=== PATIENT | female | born 1985 | race Caucasian/White ===

== ENCOUNTER 2020-04-03 11:51 | Emergency (ER) | payer MEDICAID, SELFPAY ==
--- NOTE | ~2020-04-03 | XR_ITS ---
EXAMINATION: XR SHOULDER, RIGHT CLINICAL INFORMATION: Right shoulder pain COMPARISON: None TECHNIQUE: Three views of the right shoulder. FINDINGS: The bones and soft tissues are normal. No fracture. Glenohumeral and acromioclavicular alignment is anatomic with normal joint space. No abnormal soft tissue calcifications. XR/XR shoulder RT min 2V IMPRESSION: Normal right shoulder.
[2020-04-03 11:56] VITALS: BP 130/75; PULSE 115; RESP 16; TEMP 36.8; O2SAT 99; BMI 30.2
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
== END 2020-04-03 13:09 | disposition home or self-care (01) ==
PROVIDERS: Emergency Provider Emergency Medicine
DX: S40.011A Contusion of right shoulder, initial encounter (principal); V48.0XXA Car driver injured in noncollision transport accident in nontraffic accident, initial encounter; Y93.89 Activity, other specified; Y92.414 Local residential or business street as the place of occurrence of the external cause; Y99.9 Unspecified external cause status
CPT/HCPCS: 73030; 99283

== ENCOUNTER 2020-07-03 17:45 | Emergency (ER) | payer MEDICAID, SELFPAY ==
--- NOTE | ~2020-07-03 | XR_ITS ---
EXAMINATION: XR ANKLE, RIGHT CLINICAL INFORMATION: Fall with ankle pain COMPARISON: 10/22/2019 and 03/26/2016 TECHNIQUE: Four views of the right ankle. FINDINGS: The bones and soft tissues are normal. No fracture. Alignment is anatomic. Joint spaces are maintained. No joint effusion. XR/XR ankle RT min 3V IMPRESSION: Normal right ankle.
--- NOTE | ~2020-07-03 | XR_ITS ---
EXAMINATION: XR LUMBOSACRAL SPINE CLINICAL INFORMATION: Fall and pain COMPARISON: 04/16/2014 TECHNIQUE: Three views of the lumbosacral spine. FINDINGS: Vertebral body heights and disc heights are preserved. There is a suggestion again of chronic bilateral pars defects at L5 similar to the 2015 study. The vertebral alignment is normal. The paraspinal soft tissues are normal. IUD incidentally noted. XR/XR lumbar spine 2-3V IMPRESSION: No acute bony abnormality. 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 Appearance is similar to the 2015 study.
--- NOTE | ~2020-07-03 | CT_ITS ---
EXAMINATION: CT HEAD WITHOUT CONTRAST CLINICAL INFORMATION: Headache. Visual disturbance. COMPARISON: CT scan of the head 06/28/2017. TECHNIQUE: Contiguous axial imaging was performed from the skull base to vertex without intravenous administration of contrast. This CT examination was performed using dose optimization techniques as appropriate, variously including the following: *Automated exposure control *Adjustment of mA and/or kV according to patient size (this includes techniques or standardized protocols for targeted exams where dose is matched to indication/reason for exam; i.e. extremities or head) *Use of iterative reconstruction technique DLP: 603 mGy-cm FINDINGS: There is no acute intracranial hemorrhage or abnormal extra-axial collection. No intracranial mass effect or midline shift. Lateral and third ventricles are normal. No hydrocephalus. Mujica-white matter differentiation is preserved and there is no evidence of acute territorial infarct. The calvarium and skull base are intact. Mastoid air cells and middle ear cavities are well aerated. No active paranasal sinus disease. A perforation of the nasal septum that is partially included within the [id number] of this examination. Globes and orbits are symmetric. CT/CT head/brain wo con IMPRESSION: Normal CT scan of the head. No evidence of acute territorial infarct or hemorrhage.
[2020-07-03 17:52] VITALS: BP 130/78; PULSE 114; RESP 18; TEMP 36.6; O2SAT 97; BMI 31.3
--- NOTE | 2020-07-03 19:30 | ED.FALL ---
HPI - Fall General Chief Complaint: Fall Stated Complaint: fALL Time Seen by Provider: 07/03/20 19:22 Source: patient Mode of arrival: ambulatory Limitations: no limitations History of Present Illness HPI Narrative: 35 yo female here with HERNANDEZ, intermittent blurry vision, low back pain and right ankle pain s/p mechanical fall. slip and fall, falling backwards hitting the back of her head. No loss of conscious. No anticoagulation use. No nausea, vomiting, dizziness. No neck pain. No radiation of pain. No numbness or tingling. Related Data Previous Rx's Medication Instructions Recorded ibuprofen 800 mg PO Q8H PRN #14 tab 04/03/20 Allergies Allergy/AdvReac Type Severity Reaction Status Date / Time human papillomavirus Allergy Unknown UNKNOWN Unverified 11/12/19 15:29 vaccine, quadr [From GARDASIL] Review of Systems Review of Systems: Yes all other systems are reviewed and are negative Constitutional: Constitutional: Reports no additional constitutional complaints, Denies body ache(s), Denies chills, Denies fever(s), Reports headache(s) and Denies weakness Eyes: Eyes: Reports no additional eye complaints, Reports blurry vision and Denies change in vision ENT: Reports system reviewed and no additional complaints, except as documented, Denies dizziness, Reports headache(s), Denies nasal congestion, Denies nasal discharge and Denies neck pain Cardiovascular: Cardiovascular: Reports no additional cardiovascular complaints, Denies chest pain, Denies leg edema and Denies dyspnea Respiratory: Respiratory: Reports no additional respiratory complaints, Denies cough and Denies dyspnea Gastrointestinal: Gastrointestinal: Reports no additional gastrointestinal complaints, Denies abdominal pain, Denies diarrhea, Denies nausea and Denies vomiting Genitourinary: Genitourinary: Reports no additional female genitourinary complaints and Denies urinary incontinence Musculoskeletal: Musculoskeletal: Reports no additional musculoskeletal complaints, Reports back pain, Reports arthralgias, Denies joint swelling, Denies neck pain, Denies numbness and Denies tingling Integumentary/Breasts: Skin/Breast: Reports system reviewed and no additional complaints, except as docu and Denies rash Neurologic: Reports system reviewed and no additional complaints, except as documented, Denies Abnormal speech present, Denies dizziness, Reports headache(s), Denies numbness, Denies tingling and Denies weakness PMFSH Past Medical History Attestation statement: The following information was validated with the patient. Source: old records reviewed and nursing notes reviewed Medical History Asthma Social History Social History Alcohol intake: never Smoking Status: Unknown if ever smoked Use of substances other than those prescribed or required for medical reasons: No Advance Directives: No Advance Directives Information Provided: Yes Physical Exam Vital Signs: Vital Signs: Last Vital Signs Temp 97.8 F 07/03/20 17:52 Pulse 114 H 07/03/20 17:52 Resp 18 07/03/20 17:52 BP 130/78 07/03/20 17:52 Pulse Ox 97 07/03/20 17:52 Body Mass Index 31.3 Const: General: cooperative, healthy appearing, comfortable and no acute distress Orientation/consciousness: patient oriented x3 Limitations: no limitations HENMT: Head: Yes normal to inspection Ears: hearing grossly normal bilaterally General nose exam: Normal external nose present Face and sinus: Yes normal facial exam Mouth: Normal oral and palatal mucosa present Throat: Yes posterior oropharynx normal Eyes: General: appearance normal, both eyes and all related structures Pupils: Equal, round and reactive pupils present Neck: Other: No neck pain. No midline tenderness, step-offs or deformities Neck: Yes normal visual inspection and Yes full ROM Chest: Chest palpation & inspection: normal inspection of the chest Resp: Effort & Inspection: normal respiratory effort Auscultation: clear to auscultation bilaterally Cardio: Rate: regular rate Rhythm: regular rhythm Peripheral pulses: Peripheral pulses 2+ throughout GI: Inspection: Yes normal to inspection Palpation (GI): Soft to palpation and nontender Auscultation: normal bowel sounds Back/Spine/Pelvis: Other: Lower lumbar midline tenderness with no step-offs or deformities Thoracic/Lumbar Spine: thoracic and lumbar spine normal to inspection Skin: General skin exam: no rashes or lesions noted Neuro: General: patient oriented x3, no focal motor deficits and normal sensation to monofilament Cranial nerves: Yes CN's II-XII intact bilaterally, Yes Equal, round and reactive pupils present, Yes Bilaterally intact EOM present, Yes Nystagmus not present, Yes Normal facial strength present and Yes Midline tongue present Cognition (Neuro): normal cognition Speech: No Abnormal speech present Gait exam (Neuro): Normal gait present Motor exam (neuro): 5/5 motor strength present throughout Extrem: General: Yes normal to inspection Course Course Course Narrative: 35-year-old female here status post mechanical fall with head strike. No loss of consciousness. Now has headache with some intermittent blurry vision, low back pain and right ankle pain. Check CT head, x-rays of back and ankle. 2044-CT head negative. X-rays unremarkable. Patient likely has a mild concussion. She is able to tolerate p.o. fluids and has no overt neurological deficits. Recommended concussive care. Follow up with primary care doctor in several days for re-evaluation.. X-rays negative. Likely sprain. Reviewed worrisome signs and symptoms when to return to the emergency department. Comfortable discharge home. MDM - Fall Medical Records Attestation: I reviewed the patient's medical records. Lab Data Attestation: I reviewed the patient's lab results. Imaging Data CT scan - head: Attestation: I personally reviewed and interpreted this imaging study as follows: Radiologist's impression: IMPRESSION: Normal CT scan of the head. No evidence of acute territorial infarct or hemorrhage. ankle xray right: Attestation: I personally reviewed and interpreted this imaging study as follows: Radiologist's impression: EXAMINATION: XR ANKLE, RIGHT CLINICAL INFORMATION: Fall with ankle pain COMPARISON: 10/22/2019 and 03/26/2016 TECHNIQUE: Four views of the right ankle. FINDINGS: The bones and soft tissues are normal. No fracture. Alignment is anatomic. Joint spaces are maintained. No joint effusion. XR/XR ankle RT min 3V IMPRESSION: Normal right ankle. lumbar xray: Attestation: I personally reviewed and interpreted this imaging study as follows: Radiologist's impression: EXAMINATION: XR LUMBOSACRAL SPINE CLINICAL INFORMATION: Fall and pain COMPARISON: 04/16/2014 TECHNIQUE: Three views of the lumbosacral spine. FINDINGS: Vertebral body heights and disc heights are preserved. There is a suggestion again of chronic bilateral pars defects at L5 similar to the 2014 study. The vertebral alignment is normal. The paraspinal soft tissues are normal. IUD incidentally noted. XR/XR lumbar spine 2-3V IMPRESSION: No acute bony abnormality. 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 Appearance is similar to the 2015 study. Discharge Plan Discharge Clinical Impression: Concussion without loss of consciousness, Ankle sprain, Lumbar strain Patient Disposition: Home, Self-Care Instructions: Ankle Sprain (ED), Concussion (ED), Low Back Strain (ED) Additional Instructions: Heat or ice Gentle stretching limit screen time Prescriptions: No Action ibuprofen 800 mg tablet 800 mg PO Q8H PRN (Reason: pain) Qty: 14 RF: 0 Referrals: Physician,Unknown [Primary Care Provider] - 2 days Stand Alone Forms: Work/School Release Interventions: ED Discharge Assessment Last Done: 07/03/20 20:42 Discharge Date/Time: 07/03/20 20:43
--- NOTE | 2020-07-03 19:37 | PC.NURSE ---
Plan for CT & Xrays. No IV access needed at this time. Will continue to monitor.
== END 2020-07-03 20:43 | disposition home or self-care (01) ==
PROVIDERS: Emergency Provider Emergency Medicine
DX: S06.0X0A Concussion without loss of consciousness, initial encounter (principal); S93.401A Sprain of unspecified ligament of right ankle, initial encounter; S39.012A Strain of muscle, fascia and tendon of lower back, initial encounter; G44.309 Post-traumatic headache, unspecified, not intractable; M25.571 Pain in right ankle and joints of right foot; W01.0XXA Fall on same level from slipping, tripping and stumbling without subsequent striking against object, initial encounter; Y93.9 Activity, unspecified; Y92.9 Unspecified place or not applicable; Y99.9 Unspecified external cause status
CPT/HCPCS: 70450; 72100; 73610; 99284

== ENCOUNTER 2020-11-15 16:09 | Emergency (ER) | payer MEDICAID, SELFPAY ==
[2020-11-15 17:24] VITALS: BP 136/65; PULSE 85; RESP 18; TEMP 37.2; O2SAT 99; BMI 31.3
[2020-11-15] MEDS: Lidocaine HCl 2 % MPF 5 ML VIAL INFILTRATI ×2 (19:17)
--- NOTE | 2020-11-15 20:04 | ED_ITS ---
HPI - Skin/Abscess/Foreign Bdy General Chief complaint: Skin/Abscess/Foreign Body Stated complaint: bump on back Time Seen by Provider: 11/15/20 18:37 Source: patient Mode of arrival: ambulatory Limitations: no limitations History of Present Illness HPI narrative: Patient presents to painful lump on back. Boyfriend states the lump is red and looks swollen. Patient denies any recent trauma to the back. Patient denies any recent trauma to the back. 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 Related Data Previous Rx's Medication Instructions Recorded ibuprofen 800 mg tablet 800 mg PO Q8H PRN #14 tab 04/03/20 cephalexin 500 mg capsule 500 mg PO QID #28 cap 11/15/20 doxycycline hyclate 100 mg tablet 100 mg PO BID 7 Days #14 tab 11/15/20 oxycodone-acetaminophen 5 mg-325 1 tab PO TID PRN #9 tab 11/15/20 mg tablet (Percocet) Allergies Allergy/AdvReac Type Severity Reaction Status Date / Time human papillomavirus Allergy Unknown UNKNOWN Unverified 11/12/19 15:29 vaccine, quadr [From GARDASIL] Review of Systems Review of Systems: Yes all other systems are reviewed and are negative Constitutional: Constitutional: Reports as per HPI and Reports no additional constitutional complaints Eyes: Eyes: Reports as per HPI ENT: Reports system reviewed and no additional complaints, except as documented and Reports as per HPI Cardiovascular: Cardiovascular: Reports as per HPI and Reports no additional cardiovascular complaints Respiratory: Respiratory: Reports as per HPI and Reports no additional respiratory complaints Gastrointestinal: Gastrointestinal: Reports as per HPI and Reports no additional gastrointestinal complaints Genitourinary: Genitourinary: Reports no additional female genitourinary complaints and Reports as per HPI Musculoskeletal: Musculoskeletal: Reports no additional musculoskeletal complaints, Reports as per HPI and Reports back pain Comments: Lump on back Neurologic: Reports system reviewed and no additional complaints, except as documented and Reports as per HPI Psychiatric: Psychiatric: Reports no additional psychiatric complaints and Reports as per HPI PMF Past Medical History Medical History (Updated 11/16/20 @ 00:02 by Tres Cooper) Anxiety Asthma Kidney stones PTSD (post-traumatic stress disorder) Social History Social History Alcohol intake: never Advance Directives: No Advance Directives Information Provided: Yes Patient : No Physical Exam Vital Signs: Vital Signs: Last Vital Signs Temp 99 F 11/15/20 17:24 Pulse 85 11/15/20 17:24 Resp 18 11/15/20 17:24 BP 136/65 11/15/20 17:24 Pulse Ox 99 11/15/20 17:24 Body Mass Index 31.3 Const: General: cooperative, healthy appearing, comfortable, no acute distress, well developed, alert and awake Orientation/consciousness: patient oriented x3 HENMT: Head: Yes normal to inspection, Yes No palpable skull fracture present, Yes normocephalic, Yes atraumatic and No abrasion Eyes: General: appearance normal, both eyes and all related structures Neck: Neck: Yes normal visual inspection, Yes full ROM, Yes no lymphadenopathy, Yes no meningeal signs, Yes trachea midline, Yes supple and No tender Chest: Chest palpation & inspection: normal inspection of the chest and normal palpation of entire chest wall Resp: Effort & Inspection: normal respiratory effort and able to speak in complete sentences Auscultation: clear to auscultation bilaterally Cardio: Jugular venous distension: no JVD Heart sounds: S1 normal heart sound present and S2 normal heart sound present GI: Inspection: Yes normal to inspection and No abdominal wall ecchymosis Palpation (GI): Soft to palpation, not firm, nontender, no guarding and not rigid : General: No CVA tenderness and Yes no CVA tenderness Back/Spine/Pelvis: Back: no CVA tenderness, No CVA tenderness and back tenderness Back/spine/pelvis image: 1. Positive for area mass with erythema that is fluctuant and tender to palpation. Bedside ultrasound shows small collection of pus fluid collection. Skin: Other: Abscess General skin exam: no rashes or lesions noted and elasticity normal Neuro: General: patient oriented x3, gait normal, no meningeal signs and CN's II-XI intact bilaterally Cranial nerves: Yes CN's II-XII intact bilaterally Extrem: General: Yes normal to inspection and Yes full ROM Psych: Appearance: grossly normal, well kempt and not disheveled Course Course Course Narrative: Patient states up-to-date with tetanus Reevaluation(s) Reevaluation #1: Lidocaine 5 mL used for anesthesia. Wound clean with Betadine and normal saline. Size 11 blade used for incision. Forceps placed through open up pocket of wound. Small yellow pus discharge was drained. No packing indicating. Incision very superficial. Wound culture sent. Patient given doxy will be discharged with antibiotics. Time: 20:11 MDM - Skin/Abscess/Foreign Bdy MDM Narrative Medical decision making narrative: Abscess Discharge Plan Discharge Clinical Impression: Cellulitis, Abscess of skin or subcutaneous tissue Patient Disposition: Home, Self-Care Instructions: Cellulitis (ED), Abscess Incision and Drainage (DC) Additional Instructions: You will be discharged with antibiotics for the abscess. Return to the ED in 2 days for wound re-evaluation. No packing needed. Return to ED for worsening pain, fever, chills, nausea, vomiting, increased pus discharge, or any other concerning symptoms. Prescriptions: New cephalexin 500 mg capsule 500 mg PO QID Qty: 28 RF: 0 doxycycline hyclate 100 mg tablet 100 mg PO BID 7 Days Qty: 14 RF: 0 oxycodone-acetaminophen [Percocet] 5-325 mg tablet 1 tab PO TID PRN (Reason: pain) Qty: 9 RF: 0 No Action ibuprofen 800 mg tablet 800 mg PO Q8H PRN (Reason: pain) Qty: 14 RF: 0 Stand Alone Forms: Work/School Release Interventions: ED Discharge Assessment Last Done: 11/15/20 20:30 Discharge Date/Time: 11/15/20 20:33 Print Language: [place]
[2020-11-15] MEDS: oxyCODONE HCl Immed Release 5 MG TABLET PO (20:11)
== END 2020-11-15 20:33 | disposition home or self-care (01) ==
PROVIDERS: Emergency Provider Emergency Medicine Emergency Medical Services
DX: L03.312 Cellulitis of back [any part except buttock and flank] (principal); Z79.899 Other long term (current) drug therapy
CPT/HCPCS: 10060; 87071; 87077; 87186; 87205; 99284

== ENCOUNTER 2020-11-18 18:00 | Emergency (ER) | payer MEDICAID, SELFPAY | END 2020-11-18 20:18 | disposition left against medical advice (07) | PROVIDERS: Emergency Provider Emergency Medicine; PCP Nurse Practitioner Family | DX: R79.89 Other specified abnormal findings of blood chemistry (principal) ==

== ENCOUNTER 2023-06-29 19:29 | Emergency (ER) | payer OTHER, MEDICAID, SELFPAY ==
--- NOTE | ~2023-06-29 | XR_ITS ---
EXAMINATION: XR ANKLE, LEFT CLINICAL INFORMATION: Pain/swelling status post fall COMPARISON: None available. TECHNIQUE: AP, lateral, and mortise views of the left ankle. FINDINGS: No acute fracture or dislocation of the ankle. Ankle mortise is intact. Small posttraumatic deformity of the medial malleolus. Significant soft tissue swelling surrounding the lateral malleolus and ankle. No radiopaque foreign bodies. XR/XR ankle LT 2V IMPRESSION: Significant lateral malleolus soft tissue swelling. No acute fracture or dislocation.
[2023-06-29 20:13] VITALS: BP 118/68; PULSE 93; RESP 18; TEMP 36.9; O2SAT 96; BMI 31.4
--- NOTE | 2023-06-29 22:07 | ED.GENADULT ---
HPI - General Adult General Chief complaint: Extremity Injury, Lower Stated complaint: LT ankle injury (at work) Time Seen by Provider: 06/29/23 22:07 Source: patient Mode of arrival: ambulatory Limitations: no limitations History of Present Illness HPI narrative: Patient is a 38 year old assigned female at with no reported medical history presenting to the emergency department today with left ankle pain. Patient states that she was at work when she fell backwards and her left foot bent inward awkwardly, causing pain Patient denies any head strike, loss of consciousness, dizziness, lightheadedness, abdominal pain, nausea, vomiting, fever, chills, blurry vision, double vision, loss of vision, chest pain, difficulty breathing, shortness of breath, back pain, night sweats, pain with urination, increased urinary frequency, increased urinary urgency, blood in her urine or stool, syncope or a near syncopal episode, bowel incontinence, bladder incontinence, bowel retention, bladder retention, or any other complaints at this time. Location: left and lower extremity Radiation: non-radiation Severity: mild Severity scale (1-10): 3 Quality: aching and dull Pain Consistency: constant Relieving factors: immobilization Exacerbating factors: movement Associated symptoms: denies other symptoms Treatments prior to arrival: none Related Data Previous Rx's ?Medication ?Instructions ?Recorded ibuprofen 800 mg tablet 800 mg PO Q8H PRN pain #14 tabs 04/03/20 cephalexin 500 mg capsule 500 mg PO QID #28 caps 11/15/20 doxycycline hyclate 100 mg tablet 100 mg PO BID 7 days #14 tabs 11/15/20 oxycodone-acetaminophen 5 mg-325 1 tab PO TID PRN pain #9 tabs 11/15/20 mg tablet (Percocet) Allergies Allergy/AdvReac Type Severity Reaction Status Date / Time human papillomavirus Allergy Unknown UNKNOWN Unverified 06/29/23 20:14 vaccine, quadr [From GARDASIL] cat dander [cats] Allergy Hives Verified 06/29/23 20:14 cinnamon Allergy Hives Verified 06/29/23 20:14 Review of Systems Constitutional: Constitutional: Reports no additional constitutional complaints, Denies chills, Denies fever(s) and Denies night sweats Eyes: Eyes: Reports no additional eye complaints, Denies blurry vision, Denies change in vision, Denies diplopia, Denies eye discharge, Denies loss of vision and Denies eye pain ENT: Denies dizziness Cardiovascular: Cardiovascular: Reports no additional cardiovascular complaints, Denies chest pain, Denies lightheadedness, Denies Loss of Consciousness and Denies dyspnea Respiratory: Respiratory: Reports no additional respiratory complaints and Denies dyspnea Gastrointestinal: Gastrointestinal: Reports no additional gastrointestinal complaints, Denies abdominal pain, Denies melena, Denies hematochezia, Denies change in bowel habits and Denies change in stool character Genitourinary: Genitourinary: Denies hematuria, Denies urinary frequency, Denies dysuria, Denies urinary incontinence, Denies urinary hesitancy and Denies urinary urgency Musculoskeletal: Musculoskeletal: Reports no additional musculoskeletal complaints, Denies numbness and Denies tingling Comments: left ankle pain Neurologic: Denies dizziness, Denies loss of vision, Denies numbness and Denies tingling Psychiatric: Psychiatric: Reports no additional psychiatric complaints Endocrine: Endocrine: Reports no additional endocrine complaints Hematologic/Lymphatic: Hematologic/Lymphatic: Reports no additional hematologic/lymphatic complaints Allergic/Immunologic: Allergic/Immunologic: Reports no additional allergic/immunologic complaints PMFSH Past Medical History Attestation statement: The following information was validated with the patient. Source: old records reviewed and nursing notes reviewed Medical History Anxiety PTSD (post-traumatic stress disorder) Kidney stones Asthma Social History Social History Alcohol intake: never Advance Directives: No Advance Directives Information Provided: No Patient : No Physical Exam ED Vital Signs: Vital Signs - 24 hr 06/29/23 20:13 06/29/23 22:23 Temperature 98.4 F 98 F Pulse Rate 93 93 Respiratory Rate 18 18 Blood Pressure 118/68 118/68 Pulse Oximetry 96 96 Oxygen Delivery Method Room Air BMI result Body Mass Index 31.4 Const General: cooperative, no acute distress, alert and awake Nutritional Appearance: well nourished Orientation/consciousness: patient oriented x3 Limitations: no limitations HENMT Head: Yes normal to inspection and Yes atraumatic Ears: hearing grossly normal bilaterally and external ears normal General nose exam: Normal external nose present, no nasal discharge noted and no epistaxis Face and sinus: Yes normal facial exam, No abrasion and No laceration Mouth: Normal oral and palatal mucosa present, no drooling and no muffled voice Eyes General: appearance normal, both eyes and all related structures Periorbital: periorbital findings normal Eyelids: Yes eyelids normal Conjunctivae: conjunctivae normal Pupils: Equal, round and reactive pupils present EOM: EOMs intact bilaterally Neck Neck: Yes normal visual inspection, Yes full ROM and Yes no lymphadenopathy Chest Chest palpation & inspection: normal inspection of the chest Resp Effort & Inspection: normal respiratory effort and able to speak in complete sentences GI Inspection: Yes normal to inspection Neuro General: patient oriented x3 and moves all extremities Cranial nerves: Yes Equal, round and reactive pupils present Cognition (Neuro): normal cognition Motor exam (neuro): 5/5 motor strength present throughout Sensory Exam: Normal double simultaneous stimulation for sensation Coordination: [id number] test normal Extrem Other: minimal swelling present to the left lateral ankle General: Yes full ROM and Yes capillary refill normal Psych Appearance: grossly normal Mental Status: mental status grossly normal Affect: normal affect Attitude: cooperative Thought process: Normal thought process present Thought content: Normal thought content present Insight: Good insight present (Psych) Medications Administered Discontinued Medications Generic Name Dose Route Start Last Admin Trade Name Freq PRN Reason Stop Dose Admin Ketorolac Tromethamine 15 mg 06/29/23 22:12 06/29/23 22:15 Ketorolac Tromethamine 15 Mg/Ml Vial IM 06/29/23 22:13 15 mg ONCE ONE Administration Procedures Orthopedic Splinting/Casting Injury #1: Side: left Lower Extremity Injury Location: ankle Lower Extremity Immobilizer: boot orthosis Other Orthopedic Equipment: crutches Medical Decision Making Medical Decision Making MDM Narrative: Patient is a 38 year old assigned female at with no reported medical history presenting to the emergency department today with left ankle pain. Patient's physical exam showed minimal swelling to the left ankle but was otherwise unremarkable. Patient's left ankle x-ray showed no acute process. I explained my physical exam findings as well as all test results to the patient. I answered all questions asked by the patient. Patient's left ankle was placed in a walking boot with crutches and crutch instructions. Patient's PMS was intact prior to and after boot placement. I stressed the importance of the patient taking her medication as prescribed. I stressed the importance of the patient following up with her primary care provider. I stressed the importance of the patient returning to the emergency department immediately if her symptoms were to worsen or if she were to develop any dizziness, shortness of breath, difficulty breathing, chest pain, blurry vision, loss of vision, nausea, vomiting, abdominal pain, fever, chills, back pain, or any other complaints. Patient verbalized agreement and understanding with this treatment plan and discharge. Differential Diagnosis Differential Diagnoses: The differential diagnosis associated with the presentation includes Ankle fracture Ankle sprain Ankle strain Ankle pain Admission/Observation Consideration of admission/observation: Escalation of care including admission/observation considered Patient would have been admitted to the hospital had her work up had any findings where hospital admission was appropriate and her clinical presentation warranted hospital admission. Independent Interpretation I performed an independent interpretation of an: Plain X-Ray Interpretation: My interpretation is in agreement with the radiologist's impression of this imaging study. EXAMINATION: XR ANKLE, LEFT CLINICAL INFORMATION: Pain/swelling status post fall COMPARISON: None available. TECHNIQUE: AP, lateral, and mortise views of the left ankle. FINDINGS: No acute fracture or dislocation of the ankle. Ankle mortise is intact. Small posttraumatic deformity of the medial malleolus. Significant soft tissue swelling surrounding the lateral malleolus and ankle. No radiopaque foreign bodies. XR/XR ankle LT 2V IMPRESSION: Significant lateral malleolus soft tissue swelling. No acute fracture or dislocation. Dictated By: Sherman Valle Signed By: Electronically signed by Sherman Valle 06/29/23 3371 Radiology Impression Discussion of test interpretation with radiology: I have reviewed the radiologist's reading. Discharge Plan Discharge Clinical Impression: Ankle sprain and strain Patient Disposition: Home, Self-Care Instructions: Ankle Sprain (ED), Crutch Instructions (ED) Additional Instructions: You may take the walking boot off when non-ambulatory. Keep the ankle elevated at least 2 pillows whenever at rest. Follow up with your primary care provider and an orthopedic provider. Return to the emergency department immediately if your symptoms worsen or if you develop any dizziness, shortness of breath, difficulty breathing, chest pain, blurry vision, loss of vision, nausea, vomiting, abdominal pain, fever, chills, back pain, or any other complaints. Prescriptions: No Action ibuprofen 800 mg tablet 800 mg PO Q8H PRN (Reason: pain) Qty: 14 0RF cephalexin 500 mg capsule 500 mg PO QID Qty: 28 0RF doxycycline hyclate 100 mg tablet 100 mg PO BID 7 Days Qty: 14 0RF oxycodone-acetaminophen [Percocet] 5-325 mg tablet 1 tab PO TID PRN (Reason: pain) Qty: 9 0RF Rx Instructions: side effect is drowsiness. Do not take at work or while driving. Referrals: [facility] [Provider Group] (Call to establish and follow up with a primary care provider. If you already have a primary care provider, please follow up with them.) [facility] [Provider Group] [facility] [Provider Group] [facility] [place] Orthopedic Surgeons [Provider Group] (Call to establish and follow up with an orthopedic provider.) [facility] [Provider Group] (Given this was a work place injury, you should follow up with [facility].) Stand Alone Forms: Work/School Release Interventions: ED Discharge Assessment Last Done: 06/29/23 22:23 Discharge Date/Time: 06/29/23 22:53 Print Language: Czech
[2023-06-29] MEDS: Ketorolac Tromethamine 15 MG/ML VIAL IM (22:15)
[2023-06-29 22:23] VITALS: BP 118/68; PULSE 93; RESP 18; TEMP 36.6; O2SAT 96
== END 2023-06-29 22:53 | disposition home or self-care (01) ==
PROVIDERS: Emergency Provider Emergency Medicine Emergency Medical Services
DX: S93.402A Sprain of unspecified ligament of left ankle, initial encounter (principal); S96.912A Strain of unspecified muscle and tendon at ankle and foot level, left foot, initial encounter; X50.1XXA Overexertion from prolonged static or awkward postures, initial encounter; Y93.89 Activity, other specified; Y92.512 Supermarket, store or market as the place of occurrence of the external cause; Y99.0 Civilian activity done for income or pay
CPT/HCPCS: 73600; 96372; 99284; J1885

== ENCOUNTER 2023-07-19 10:55 | Outpatient (AMB) | payer OTHER, MEDICAID, SELFPAY ==
--- NOTE | 2023-07-19 11:16 | A.OFFVIS_ITS ---
Vital Signs 07/19/23 11:22 Height 4 ft 11 in Weight 155 lb BMI 31.3 Intake Visit Reasons: [employer]-Left ankle injury-DOI 06/29/23 Intake Note: Pita a 38 year old female who presents today for a WC evaluation of left ankle injury, DOI 06/29/23. Patient reports she was at work when she fell of a ledge while attempting to throw out trash, states falling backwards hitting her ankle on the concrete. She presented to [facility] ED where xrays were taken and placed in walking boot. Currently her pain has improved however she continues to have pain in the lateral aspect of ankle as well as tingling sensation. Denies numbness. Allergies human papillomavirus vaccine, quadr [From GARDASIL] Allergy (Unknown, Unverified 06/29/23 20:14) UNKNOWN cat dander [cats] Allergy (Verified 07/19/23 11:22) Hives cinnamon Allergy (Verified 07/19/23 11:22) Hives HPI HPI [employer]ER-Left ankle injury-DOI 06/29/23: Details: 38-year-old female who presents to the office today for an ER follow-up of left ankle injury after she attempted to throw out trash and fell backwards hitting her ankle with concrete, 06/29/23. She was seen at ED where x-rays were performed and she was referred to our office. She currently states she has improvement in her pain however she continues to have numbness as well as intermittent pain at the lateral aspect of her ankle. 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 [facility] Medical History Anxiety PTSD (post-traumatic stress disorder) Kidney stones Asthma Social History (Updated 07/19/23 @ 11:20 by ALEC Robertson) Alcohol intake: never Patient Tobacco Use Status: Current everyday Tobacco user Current occupation: restaurant cashier Review of Systems Const All systems reviewed & are unremarkable except as noted in HPI and below Physical Exam Vital Signs: BMI result Body Mass Index 31.3 Const General: cooperative, healthy appearing, comfortable, no acute distress, well developed and alert Orientation/consciousness: patient oriented x3 HEENT Head: Yes normal to inspection, Yes normocephalic and Yes atraumatic Eyes General: appearance normal, both eyes and all related structures Resp Effort & Inspection: normal respiratory effort and able to speak in complete sentences Cardio Rate: regular rate Peripheral pulses: Peripheral pulses 2+ throughout GI Palpation (GI): Soft to palpation Skin Lesions: no lesions Rashes: no rashes Neuro General: patient oriented x3 Extrem Other: Left ankle: Normal to inspection with diffuse swelling over the medial and lateral malleolus with tenderness along the soft tissues. Mild discomfort along the posterior aspect of the ankle, no deformity along the Achilles tendon, negative Gill?s. No pain along the syndesmosis or anterior tibia. No laxity, NVI. Results Reviewed Results Reviewed: xrayds of the left ankle obtained on 06/29/23 XR ankle LT 2V IMPRESSION: Significant lateral malleolus soft tissue swelling. No acute fracture or dislocation. Assessment & Plan Assessment & Plan (1) Left ankle sprain: Code(s): S93.402A - Sprain of unspecified ligament of left ankle, initial encounter Category: Medical Plan We discussed options which include PT, NSAIDs and bracing. The patient will proceed with PT and NSAIDs. She was fit for a lace up aso brace . If symptoms persist, the patient will contact me for an injection, otherwise, PRN. Orders: Orders PT Evaluation and Treatment 07/19/23 S93.402A - Sprain of unspecified ligament of left ankle, initial encounter Patient Instructions: Scribed for Tre Rangel PA-C, by Jeremiah Vela medical recruiter, on 07/19/2023 at 11:00 AM EST.? I, Tre Rangel PA-C, have personally reviewed and agree with the information entered by the scribe. Coding Level of Care Code New Pt Level 3 (71755) Diagnoses Left ankle sprain S93.402A
[2023-07-19 11:22] VITALS: BMI 31.3
== END 2023-07-19 12:15 | disposition home or self-care (01) ==
PROVIDERS: Visit Provider Physician Assistant
DX: S93.402A Sprain of unspecified ligament of left ankle, initial encounter (principal)
CPT/HCPCS: 99203

== ENCOUNTER → 2023-07-19 10:55 | Outpatient (BNVA) | payer OTHER, MEDICAID, SELFPAY | PROVIDERS: Visit Provider Physician Assistant | DX: S93.402A Sprain of unspecified ligament of left ankle, initial encounter (principal) | CPT/HCPCS: 99202 ==

== ENCOUNTER 2023-08-27 14:00 | Outpatient (RCR) | payer OTHER, MEDICAID, SELFPAY ==
--- NOTE | 2023-08-14 14:00 | MHC.PT.EP ---
[facility] [place] Office [place] Office [place] Office [address] Jamal Olivas [address] [phone] F: [phone] F: [phone] F: [phone] F: [phone] Physical Therapy Plan of Care Date of Evaluation: 08/14/23 Date of Surgery: Diagnosis: This is a 38 yo female presenting to skilled PT with a script of sprain of unspecified ligament of L ankle. Assessment: This is a 38 yo female presenting to skilled PT with a script of sprain of unspecified ligament of L ankle. Patient is a WC evaluation after left ankle injury, DOI 06/29/23. Patient reports she was at work when she fell backwards while attempting pull the trash. She ended up falling backwards, twisting her ankle inwards (if hit the concrete hard) and she landed on outstretched arms. She presented [place] [facility] [place] were taken, dx with an ankle sprain and was placed in walking boot with crutches (she was in this for 4 wks). She was referred to [facility] [place]. Patient saw [facility] [place] and note states: We discussed options which include PT, NSAIDs and bracing. The patient will proceed with PT and NSAIDs. She was fit for a lace up aso brace. If symptoms persist, the patient will contact me for an injection, otherwise, PRN. Patient reports that ortho told her it was fractured however nothing was noted in the report. Currently her pain has improved however she continues to have pain in the lateral aspect of ankle as well as tingling sensation. Denies numbness. She started to wear the ankle brace but it was bothering her and she has been attempting to wean out of the brace. Pain now increases with sleeping, walking, sitting and standing depending on how much activity or position she is in. Her pain is described as burning, jabbing and tingling localized at the lateral malleoli. She does endorse swelling that occurs after a long day or periods of longer back to back days at work. Her foot itself has been feeling better but her lateral malleoli pain is about the same since the injury. Assessment reveals pain that ranges from up to a 7-8/10 at the worst. Patient demos decreased L ankle ROM, strength of L LE, TTP at lateral malleoli, anterior ankle joint and fibular head. She has increased swelling at the posterior lateral malleoli, impaired posture with forward head and rounded shoulders as well as associated gait deviations and impaired balance. Based on functional limitations, impaired QOL and pain tolerance patient is a good candidate for skilled PT 2x/wk for 4wks. Frequency and Duration: The patient will be seen 2x/wk for 4wks Short Term Goals: (in 2 weeks) Patient will improve ankle AROM by at least 10 degs DF Patient will be I in [facility] Skilled Nursing Goals: (in 4 weeks) Patient will report 75% improvement in balance and strength of LLE as evidenced by reports of improved standing tolerance at work. Patient will improve LEFs by 10 points Patient will demo WFL AROM of knee and ankle Patient will demo proper squat and lift techniques without increase in pain Treatment Plan: Modalities to reduce pain, spasms and effusion. Manual therapy to restore motion and function. Therapeutic exercise to improve strength and flexibility. Neuromuscular re-education for posture and balance. Therapeutic activities to return to functional activities of daily living. Electronically signed by: Gail Hayward PT Please sign and return to therapist. Thank you for your referral.
--- NOTE | 2023-09-27 08:13 | MHC.PT.DC ---
[facility] [place] Office [place] Office [place] Office [address]ivas [address] [phone] F: [phone] F: [phone] F: [phone] F: [phone] Physical Therapy Discharge Report Diagnosis: This is a 38 yo female presenting to skilled PT with a script of sprain of unspecified ligament of L ankle. Date of Surgery: Date of Evaluation: 08/14/23 Date of Discharge: 09/27/23 Treatments to Date: 3 Cancellations to Date: 0 No Shows to Date: 0 Discharge Status: Patient Elected to Stop Visit Non-compliance Discharge Summary: Patient came to 3 visits of PT and no showed to remaining. DC due to visit noncompliance. Chart was closed after 30 days. Electronically signed by: Gail Hayward PT Please sign and return to therapist. Thank you for your referral.
== END 2023-09-27 08:14 | disposition home or self-care (01) ==
LOC: HO.PTCHIC 14:00
PROVIDERS: PCP Family Medicine; Visit Provider Physician Assistant
DX: S93.402D Sprain of unspecified ligament of left ankle, subsequent encounter (principal)
CPT/HCPCS: 97035; 97110; 97140; 97161

== ENCOUNTER 2024-07-27 11:31 | Outpatient (REF) | payer OTHER, MEDICAID, SELFPAY ==
--- OUTSIDE RECORDS SUMMARY | 2024-07-27 12:49 | XMS_ITS | Encounter Summary ---
Author Organization [employer] Address [address] [facility] [address] [place] [address] Care Team Providers Care Pre Owned Sales Consultant Name Role Phone Ro Fagan Primary Care Provider [phone] Reason for Visit * Reason Onset Date Comments Nurse Triage 07/24/2024 Encounter Details Date Type Department Care Team ([facility] st Contact Info) Description 07/24/2024 Telephone [facility] MEDICINE [address] [place] [address] Ro Fagan FNP [address] [place], [place] [id number] Nurse Triage Social History Tobacco Use Types Packs/Day Years Used Date Smoking Tobacco: Every Day Passive Smoke Exposure: Never Alcohol Use Standard Drinks/Week Comments Yes 0 (1 standard drink = 0.6 oz pur e alcohol) occasionally Depression Answer Date Recorded Patient Health Questionnaire-9 Score 9 07/27/2024 Patient Health Questionnaire-9 Score 9 07/27/2024 Last PHQ-9: Questionnaire Data Not on file 0 07/27/2024 Housing Stability Answer Date Recorded What is your housing situation today? I have reid roldan 07/27/[address] you li ve. Do you have problems with any of the following? I am not sure 07/27/2024 Food Insecurity Answer Date Recorded Within the past 12 months, y ou worried that your food would run out before you got money to buy more: Never True 07/27/2024 Within the past 12 months,th e food you bought just didn't last and you didn't have enough money to get more: Never True 03/2024 Transportation Answer Date Recorded In the past 12 months, has l ack of transportation kept you from medical appts, meetings, work or from getting things needed for daily living? No 07/27/2024 Utilities Answer Date Recorded In the past 12 months, has t he electric, gas, oil or water company threatened to shut off services in your home? No 07/27/2024 Depression Answer Date Recorded Patient Health Questionnaire-2 Score 0 07/27/2024 Internet Access Answer Date Recorded Internet Access Q1 Yes 07/27/2024 Internet Access Q2 Not on file 07/27/2024 Comments Unknown Sex and Gender Information Value Date Recorded Sex Assigned at Female 12/25/2021 10:31 AM EDT Legal Sex Female 10:31 AM EDT Gender Identity Female 12/25/2021 10:31 AM EDT Sexual Orientation Straight 07/20/2022 6: 41 PM EDT documented as of this encounter Functional Status * Over the past 2 weeks, how often have you been bothered by any of the following problems? Question Answer Date of Assessment Author Patient Health Questionnaire-2 Score 0 03/2024 11:38 AM Katharine Peace MA * Little interest or pleasure in doing things Answer Date of Assessment Author Not at all 07/27/2024 11:38 AM Celina Peace MA * Feeling down, depressed, or hopeless Answer Date of Assessment Author Not at all 07/27/2024 11:38 AM Celina Peace MA * Trouble falling or staying asleep, or sleeping too much Answer Date of Assessment Author Nearly every day 07/27/2024 11:38 AM Katharine Peace MA * Feeling tired or having little energy Answer Date of Assessment Author Nearly every day 07/27/2024 11:38 AM Katharine Peace MA * Poor appetite or overeating Answer Date of Assessment Author Nearly every day 07/27/2024 11:38 AM Katharine Peace MA * Feeling bad about yourself - or that you are a failure or have let yourself or your family down Answer Date of Assessment Author Not at all 07/27/2024 11:38 AM Celina Peace MA * Trouble concentrating on things, such as reading the newspaper or watching television Answer Date of Assessment Author Not at all 07/27/2024 11:38 AM Celina Peace MA * Moving or speaking so slowly that other people could have noticed? Or the opposite - being so fidgety or restless that you have been moving around a lot more than usual. Answer Date of Assessment Author Not at all 07/27/2024 11:38 AM EDT Celina Solomon MA * Thoughts that you would be better off or hurting yourself in some way Answer Date of Assessment Author Not at all 07/27/2024 11:38 AM EDT Celina Solomon MA * Patient Health Questionnaire-9 Score Answer Date of Assessment Author 9 07/27/2024 11:38 AM EDT Celina Solomon MA documented as of this encounter Miscellaneous Notes * Telephone Encounter - Aditi Du RN - 07/24/2024 11:20 AM EDT called pt to triage, spoke to pt. pt states seen ER at [facility] on 07/23 for abdominal pain. pt states low abdomen/pelvic pain with nausea and intermittent dizziness. negative work up and nothing acute found. pt requesting follow up appt today, and advised nothing available today and need to make sure notes from the ER are available in the chart for review. given appt Saturday with blue team provider at 10:30 for exam and follow up as needed. advised home care: rest, fluids, monitor symptoms and call back as needed. pt understands and agrees with plan. insurance verified. Protocol Used: Abdominal Pain - Female (Adult) Protocol-Based Disposition: See in Office or Video Visit Today or Tomorrow Positive Triage Question: * Mild pain (e.g., does not interfere with normal activities) and pain comes and goes (cramps) lasts > 48 hours (Exception: This same abdominal pain is a chronic symptom recurrent or ongoing AND present > 4 weeks.) * All higher-acuity triage questions were negative Care Advice Discussed: * Rest * Drink Clear Fluids * Diet * Pass a Stool * Avoid Aspirin and NSAIDs * Expected Course - Abdomen Pain * Reasons To Call Back - You become worse * Telephone Encounter - Pjdevenscarlett Adams - 07/24/2024 10:50 AM EDT Tc from pt returning call Please return call [phone] * Telephone Encounter - Clare Enriquez - 07/24/2024 9:20 AM EDT Patient calling to report ED visit on : Date: 07/23 Hospital: [facility] ER Seen for: Abdominal Pain Symptomatic Yes *if yes message should go to Triage Patient advised will forward to team nurse for follow up [phone] documented in this encounter Plan of Treatment Not on file documented as of this encounter Visit Diagnoses Not on filedocumented in this encounter Additional Health Concerns Assessment Noted Time PHQ-9 Depression Total Score: 7 07/20/19 10:51 AM EDT documented as of this encounter Care Teams Pre Owned Sales Consultant Relationship Specialty Start Date End Date Ro Fagan FNP [address] [place] [id number] PCP - General Family Medicine 06/07/22 documented as of this encounter
[2024-07-27 13:05] LABS: MANUAL DIFF FLAG NO
[2024-07-27 13:17] LABS: Basophils Absolute Auto 0.1 X10*3/uL (0.0-0.2); Basophils Percent Auto 0.4 % (0-2); Eosinophils Absolute Auto 0.2 X10*3/uL (0.0-0.4); Eosinophils Percent Auto 1.2 % (0-4); Hemoglobin 16.5 g/dl (12.0-16.0); Imm Gran Abs Auto 0.09 X10*3/uL (0.00-0.03); Imm Gran Pct Auto 0.6 % (0.0-0.4); Lymphocytes Absolute Auto 2.2 X10*3/uL (1.2-4.9); Lymphocytes Percent Auto 13.2 % (20-40); Mean Corpuscular HGB Conc 34.4 g/dl (31.0-35.0); Mean Corpuscular Hemoglobin 31.2 pg (27.0-33.0); Mean Corpuscular Volume 90.7 fL (80.0-98.0); Mean Platelet Volume 10.1 fL (9.4-12.3); Monocytes Absolute Auto 1.1 X10*3/uL (0.1-1.2); Monocytes Percent Auto 6.8 % (2-11); Neutrophils Absolute Auto 12.7 x10*3/uL (2.0-8.3); Neutrophils Percent Auto 77.8 % (45-73); Platelet Count 291 X10*3/uL (160-400); Red Blood Count 5.29 X10*6/uL (4.20-5.50); Red Cell Distribution Width 12.9 % (11.0-16.0); White Blood Count 16.4 X10*3/uL (4.8-10.8)
[2024-07-27 14:00] LABS: Erythrocyte Sedimentation Rate 3 MM/HR (0-20)
[2024-07-27 14:03] LABS: Alanine Aminotransferase 15 U/L (0-31); Albumin Level 4.5 g/dL (3.5-5.0); Alkaline Phosphatase 68 U/L (39-117); Anion Gap 15 (12-20); Aspartate Amino Transferase 21 U/L (5-31); Bilirubin Total 0.6 mg/dL (0.0-1.0); Blood Urea Nitrogen 11 mg/dL (9-16); C Reactive Protein 3.34 mg/dL (< or = 0.50); Calcium 9.6 mg/dL (8.4-10.2); Carbon Dioxide 35 mmol/L (22-29); Chloride 93 mmol/L (96-108); Estimated Glomerular Filt Rate > 60; Glucose Random 111 mg/dL (60-115); Potassium 2.6 mmol/L (3.3-5.1); Sodium 140 mmol/L (135-145); Total Protein 7.3 g/dL (6.5-8.0)
[2024-07-28 11:10] LABS: CT PCR NOT DETECTED (Not Detect.); NG PCR NOT DETECTED (Not Detect.)
== END 2024-07-27 11:32 | disposition home or self-care (01) ==
LOC: HO.HHCL 11:31
PROVIDERS: Visit Provider Nurse Practitioner Family
DX: R10.30 Lower abdominal pain, unspecified (principal)
CPT/HCPCS: 36415; 80053; 85025; 85652; 86140; 87086; 87491; 87591

== ENCOUNTER 2024-07-31 07:58 | Outpatient (REF) | payer MEDICAID, SELFPAY ==
--- NOTE | ~2024-07-31 | US_ITS ---
EXAMINATION: US PELVIS CLINICAL INFORMATION: Severe lower abdominal pain, nausea, emesis, COMPARISON: CT from July 31, 2024 TECHNIQUE: Ultrasound of the pelvis is performed using both transabdominal and transvaginal transducers along with Doppler. Transvaginal imaging is performed due to inadequate visualization transabdominally. FINDINGS: Uterus: The uterus is anteverted and measures 7.3 x 3.6 x 4.8 cm. Linear echogenic shadowing device is present in the upper uterine canal consistent with known IUD obscuring the endometrium. The uterus is smooth in contour and has normal myometrial echogenicity. No visible fibroid. Adnexa: Both ovaries are visualized. There is normal color flow to the adnexa. There is no ovarian torsion. There is no pelvic ascites or fluid collection. Right ovary measures 3.0 x 2.8 x 2.1 cm. Numerous follicles are present. There is a complex type mass measuring 18 x 19 mm with numerous internal septations. There is increased through transmission. On color Doppler there is peripheral blood flow. The appearance is consistent with a hemorrhagic cyst. cm. Left ovary measures 3.1 x 1.7 x 2.0 cm. cm. US/US pelvic and transvaginal IMPRESSION: Hemorrhagic right ovarian cyst requiring no further follow-up. IUD is in the upper uterine canal. Electronically signed by: Jonnie Dang MD 07/31/2024 03:41 PM EDT
--- NOTE | ~2024-07-31 | CT_ITS ---
EXAMINATION: CT ABDOMEN PELVIS WITH IV CONTRAST HISTORY: lower abd pain, r/o appendicitis COMPARISON: There are no prior studies for available comparison. TECHNIQUE: CT scan of the abdomen and pelvis was performed following administration of 85 mL Omnipaque 350 using standard departmental protocol. Coronal and sagittal reformatted images were generated and reviewed. Oral contrast material was not administered at the request of the referring physician. This CT exam was performed with one or more of the following dose reduction techniques: automated exposure control, adjustment of the mA and/or kV according to patient size, use of iterative reconstruction technique. DLP: 302 mGy-cm FINDINGS: LOWER CHEST: There is linear subsegmental atelectasis versus scarring at the left lung base. The visualized right lung base near. There is no pleural effusion. CARDIOVASCULATURE: The heart is normal in size. There is no pericardial effusion. LIVER: The liver is normal in size and contour. No liver mass is identified. The hepatic and portal veins are patent. GALLBLADDER / BILE DUCTS: The gallbladder is unremarkable. There is no intra or extrahepatic biliary ductal dilatation. SPLEEN: The spleen is normal in size. No focal splenic lesion is identified. PANCREAS: The pancreas is unremarkable in appearance. ADRENAL GLANDS: Within normal limits. KIDNEYS/RETROPERITONEUM: No renal calculi are identified. There is no hydronephrosis. No renal masses are identified. LYMPH NODES: No abdominal or pelvic lymphadenopathy. VASCULATURE: The abdominal aorta is normal in caliber. MESENTERY/PERITONEUM: No free fluid. No masses. There is no free intraperitoneal gas. STOMACH: The stomach is collapsed, limiting evaluation. SMALL BOWEL: The small bowel is normal in caliber. COLON: There is a moderate amount of stool throughout the colon. APPENDIX: Normal. URINARY BLADDER/PELVIC ORGANS: The urinary bladder is collapsed, limiting evaluation. An IUD is noted in the endometrial cavity of the uterus. There is a 2.1 cm right ovarian cyst versus follicle. An involuting follicle is also seen in the left ovary. BONES / SOFT TISSUES: There is bilateral spondylolysis of L5 with slight spondylolisthesis of L5 on S1. CT/CT abdomen pelvis w IV con IMPRESSION: 1. A normal appendix is visualized. 2. 2.1 cm right ovarian cyst versus follicle. Electronically signed by: Jose Daniel Baker MD 07/31/2024 11:34 AM EDT
--- OUTSIDE RECORDS SUMMARY | 2024-07-31 08:01 | XMS_ITS | Encounter Summary ---
Author Organization [employer] Address [address] [facility] [address] [place] [address] Care Team Providers Care Steam Fitter Supervisor Name Role Phone Ro Fagan Primary Care Provider [phone] Reason for Visit * Reason Onset Date Comments Nurse Triage 07/24/2024 Encounter Details Date Type Department Care Team ([facility] st Contact Info) Description 07/24/2024 Telephone [facility] MEDICINE [address] [place] [address] Ro Fagan FNP [address] [place], [place] [phone] Nurse Triage Social History Tobacco Use Types [...] to pt. pt states seen ER at [facility] on 07/23 for abdominal pain. pt states [...] from pt returning call Please return call [phone] * Telephone Encounter - Clare Enriquez - 07/24/2024 9:20 AM EDT Patient calling to report ED visit on : Date: 07/23 Hospital: [facility] ER Seen for: Abdominal Pain Symptomatic Yes *if yes message should go to Triage Patient advised will forward to team nurse for follow up [phone] documented in this encounter Plan of Treatment Not on file documented as of this encounter Visit Diagnoses Not on filedocumented in this encounter Additional Health Concerns Assessment Noted Time PHQ-9 Depression Total Score: 7 07/20/19 10:51 AM EDT documented as of this encounter Care Teams Steam Fitter Supervisor Relationship Specialty Start Date End Date Ro Fagan FNP [address] [place] [id number] PCP - General Family Medicine 06/07/22 documented as of this encounter
[2024-07-31] MEDS: iohexoL 350 MG/ML 100 ML INFUS..BTL IV (11:20)
[2024-07-31] MEDS: Barium Sulfate Oral (Vanilla) 450 ML ORAL.SUSP 900 ML PO (11:21)
== END 2024-07-31 07:59 | disposition home or self-care (01) ==
LOC: HO.CT 07:58
PROVIDERS: PCP Family Medicine; Visit Provider Nurse Practitioner Family
DX: R10.31 Right lower quadrant pain (principal); R10.30 Lower abdominal pain, unspecified
CPT/HCPCS: 74177; 76830; 76856; Q9967

== ENCOUNTER → 2024-07-31 08:01 | Outpatient (BNV) | payer MEDICAID, SELFPAY | PROVIDERS: PCP Family Medicine; Visit Provider Radiology Diagnostic Radiology | DX: R10.30 Lower abdominal pain, unspecified (principal); N83.291 Other ovarian cyst, right side; Z97.5 Presence of (intrauterine) contraceptive device | CPT/HCPCS: 74177; 76830; 76856 ==